=== PATIENT | female | born 1990 | race African-American/Black ===

== ENCOUNTER 2017-07-03 22:23 | Inpatient (IN) ==
[2017-07-03 22:31] VITALS: BMI 29.9
[2017-07-03 23:02] LABS: BILIRUBIN,URINE NEGATIVE (NEGATIVE); BLOOD/HEMOGLOBIN,URINE NEGATIVE (NEGATIVE); GLUCOSE, URINE NEGATIVE (NEGATIVE); KETONES,URINE NEGATIVE (NEGATIVE); LEUKOCYTE ESTERASE ,URINE 1+ (NEGATIVE); NITRITES,URINE POSITIVE (NEGATIVE); PROTEIN,URINE NEGATIVE (NEGATIVE); UROBILINOGEN,URINE NORMAL (NORMAL)
[2017-07-03 23:13] LABS: APPEARANCE,URINE SLIGHTLY HAZY (CLEAR); BACTERIA,URINE 2+ /HPF (NEGATIVE); COLOR,URINE YELLOW (YELLOW); RBC,URINE 0-2 /HPF (NONE SEEN); SQUAMOUS EPITHELIAL CELL,UR MANY /HPF (NEGATIVE)
[2017-07-03 23:15] LABS: AMNISURE ROM TEST NO MEMBRANES RUPTURE (NO RUPTURE)
[2017-07-03] MEDS ORDERED: PITOCIN ONE ×2 (23:43→23:44)
[2017-07-03] MEDS ORDERED: NS 100 ML IV 100 ML IV ONE (23:43)
[2017-07-03] MEDS ORDERED: AMPICILLIN VIAL 2 GRAM ONE (23:43)
[2017-07-03] MEDS ORDERED: D5LR 1L W PITOCIN 10 UNITS/L 10 UNITS/1,000 ML BAG IV ONE (23:43)
[2017-07-03] MEDS ORDERED: D5 1/2 NS 1000 ML 1,000 ML IV ONE (23:43)
[2017-07-03] MEDS ORDERED: D5 LR 1000 ML 1,000 ML IV ONE (23:44)
[2017-07-04] MEDS ORDERED: D5 1/2 NS 1000 ML 1,000 ML IV SCH
[2017-07-04] MEDS ORDERED: AMPICILLIN VIAL 2 GRAM 2 G in NS 100 ML IV + SPIKE MINIBAG* 100 ML IV SCH ×2
[2017-07-04] MEDS ORDERED: PITOCIN IVP ONE
[2017-07-04 00:31] LABS: BASOPHILS # (AUTO) 0.1 X10^3/uL (0.0-0.1); BASOPHILS % (AUTO) 0.5 % (0.2-1.0); EOSINOPHILS # (AUTO) 0.1 x10^3/uL (0.0-0.2); EOSINOPHILS % (AUTO) 0.5 % (0.9-2.9); HEMATOCRIT 27.4 % (36.0-47.0); HEMOGLOBIN 9.1 g/dL (12.0-16.0); LYMPHOCYTES # (AUTO) 2.2 X10^3/uL (1.3-2.9); LYMPHOCYTES % (AUTO) 18.8 % (21.0-51.0); MEAN CORPUSCULAR HEMOGLOBIN 28.7 pg (27.0-34.0); MEAN CORPUSCULAR HGB CONC 33.3 g/dL (33.0-35.0); MEAN CORPUSCULAR VOLUME 86.3 fL (80.0-100.0); MEAN PLATELET VOLUME 9.3 fL (7.4-11.0); MONOCYTES # (AUTO) 0.6 x10^3/uL (0.3-0.8); MONOCYTES % (AUTO) 5.2 % (0.0-13.0); NEUTROPHILS # (AUTO) 8.7 x10^3/uL (2.2-4.8); PLATELET COUNT 306 X10^3/uL (150.0-450.0); RED BLOOD COUNT 3.18 X10^6/uL (3.5-5.4); RED CELL DISTRIBUTION WIDTH 15.7 % (11.6-16.5); WHITE BLOOD COUNT 11.7 X10^3/uL (3.6-10.0)
[2017-07-04] MEDS ORDERED: MOTRIN TAB 800 MG PO PRN (00:43)
[2017-07-04] MEDS ORDERED: PHENERGAN INJ 25 MG IV PRN ×2 (00:43→01:51)
[2017-07-04] MEDS ORDERED: D5 1/2 NS 1000 ML 1,000 ML with PITOCIN 20 UNITS IV SCH ×2 (01:00)
[2017-07-04 01:17] LABS: BLOOD UREA NITROGEN 10 mg/dL (7-18); CALCIUM 8.1 mg/dL (8.5-10.1); CARBON DIOXIDE 22.4 mmol/L (21-32); CHLORIDE 102 mmol/L (98-107); CREATININE 0.71 mg/dL (0.55-1.02); SODIUM 136 mmol/L (136-145); eGFR NON BLACK RACES > 60 (>60)
[2017-07-04] MEDS ORDERED: AMBIEN PO PRN (01:51)
[2017-07-04] MEDS ORDERED: MILK OF MAGNESIA PO PRN (01:51)
[2017-07-04] MEDS ORDERED: ADACEL or BOOSTRIX TDaP VACCINE IM ONE (01:51)
[2017-07-04] MEDS ORDERED: DERMOPLAST SPRAY TOP PRN (01:51)
[2017-07-04] MEDS: MOTRIN TAB 800 MG PO PRN ×2 (02:00→17:12)
[2017-07-04 05:19] LABS: HEMATOCRIT 27.6 % (36.0-47.0); HEMOGLOBIN 9.4 g/dL (12.0-16.0)
[2017-07-04] MEDS: PRENATAL PLUS PO SCH (09:14)
[2017-07-04] MEDS: ZANTAC PO SCH ×2 (09:14→20:44)
[2017-07-04] MEDS: BACTRIM DS TAB PO SCH ×2 (09:14→20:43)
[2017-07-04] MEDS: D5 1/2 NS 1000 ML 1,000 ML with PITOCIN 20 UNITS IV SCH ×4 (10:11→17:22)
[2017-07-05] MEDS: D5 1/2 NS 1000 ML 1,000 ML with PITOCIN 20 UNITS IV SCH ×2 (01:49)
[2017-07-05 07:44] VITALS: BP 97/55
[2017-07-05] MEDS ORDERED: DEPO-PROVERA CONTRACEPTIVE INJ IM ONE (08:05)
[2017-07-05] MEDS: BACTRIM DS TAB PO SCH (08:56)
[2017-07-05] MEDS: ZANTAC PO SCH (09:01)
[2017-07-05] MEDS: PRENATAL PLUS PO SCH (09:01)
== END 2017-07-05 11:00 | disposition home or self-care (01) | DRG 775 ==
LOC: ER 22:35 → LD 23:41 → MED/SURG 07-04 00:44
PROVIDERS: ADMIT Specialist; ATTEND Specialist
DX: Z37.0 Single live birth; N39.0 Urinary tract infection, site not specified; Z3A.39 39 weeks gestation of pregnancy; F12.90 Cannabis use, unspecified, uncomplicated; O99.013 Anemia complicating pregnancy, third trimester; D50.8 Other iron deficiency anemias
CPT/HCPCS: 36415; 59409; 80048; 81001; 84112; 85014; 85018; 85025; 86592; 86850; 86880; 86900; 86901; 99282; 99284; A4216; A4222; S0197; J0290; J1050; J2590; J7050; J7121; S5010

== ENCOUNTER 2019-12-15 09:09 | Inpatient (IN) ==
[2019-12-15] MEDS ORDERED: NS 500 ML IV 1,000 ML IV ONE (09:25)
[2019-12-15] MEDS ORDERED: NS 500 ML IV 500 ML IV ONE (09:32)
--- NOTE | 2019-12-15 09:38 | DR.POSSPRE ---
HPI Time Seen Time Seen by Provider: 12/15/19 09:25 Primary Care Physician Primary Care Physician: NFD Complaints Chief Complaint Doctors Comments: Patient with no care and believes she saw Fetus pass with blood and clots. Still having blood clots and has a Hx of anemia. Chief Complaint:: PT STATES THAT SHE WAS ABOUT 3 MONTHS AND HAD MISCARRIAGE ON SUNDAY AND WAS SEEN IN [place] [facility]. PT STATES THAT SHE IS STILL PASSING LARGE CLOTS AND TODAY HAS FELT VERY DIZZY AND LIKE SHE WOULD PASS OUT. Reviewed Nurses Notes Reviewed: Yes Source History Provided: Patient Mode of Arrival Mode of Arrival: Ambulatory Timing Onset of Chief Complaint: 12/15/19 Context Control: None History of ectopic : No History of: None Associated Signs and Symptoms Associated Signs and Symptoms: Vaginal Bleeding Severity If Nausea/Vomiting:: Mild Quality If Vaginal Bleeding:: Dark and Clotted If abdominal pain:: Cramping PMH PMH Past Medical History: No Past Surgical History: No Family History History of Family Medical Conditions: No Family Medical History: Diabetes Mellitus, Coronary Artery Disease and Hypertension Social History Does patient currently use any type of tobacco product: Yes Have you used tobacco products in the last 12 months: Yes Type of Tobacco Use: Cigarettes Does any household member use tobacco: No Alcohol Use: Occasionally Do you use any recreational Drugs:: No Lives With: Family Lives Where: Home Infectious screening In the last 2 months have you had wt loss of >10#?: NO Have you had fever, night sweats or hemotysis?: No Have you traveled outside the country in the last 6 months?: No Isolation: Standard ROS Review of Systems Constitutional: No Symptoms Reported Eyes: No Symptoms Reported ENTM: No Symptoms Reported Respiratoy: No Symptoms Reported Cardiovascular: Syncope (near syncope) Gastrointestinal/Abdominal: Nausea Genitourinary: No Symptoms Reported Neurological: No Symptoms Reported Musculoskeletal: No Symptoms Reported Integumentary: No Symptoms Reported Hematologic/Lymphatic: Anemia and Blood Clots Endocrine: No Symptoms Reported Psychiatric: No Symptoms Reported All Other Systems: Reviewed and Negative PE Vital Signs Vitals: Temperature 98.1 F Pulse Rate 101 Respiratory Rate 33 Blood Pressure [Right Arm] 97/55 Blood Pressure 79/41 O2 Sat by Pulse Oximetry 100 General Limitations: No Limitations General Appearance: Alert and In No Apparent Distress Head Head Exam: Normal Inspection, Atraumatic and Normocephalic Eyes Eye exam: Normal Appearance and EOMI ENT ENT Exam: Normal Exam and Normal Oropharynx Neck Neck Exam: Normal Inspection, Full ROM and Trachea Midline Chest Chest Inspection: Normal Inspection Respiratory Respiratory Exam: Normal Lung Sounds Bilat Respiratory Exam: Bilateral: Clear to Auscultation Cardiovascular Cardiovascular Exam: Tachycardia Abdominal Exam Abdominal Exam: Normal Inspection, Normal Bowel Sounds and Soft; negative Distention, Tenderness and Guarding Abdominal Tenderness: Suprapubic Rectal Rectal Exam: Deferred Genitourinary Exam: OB: Deferred : OB External Exam: Deferred Extremities Extremities Exam: Normal Inspection and Full ROM Back Back Exam: Normal Inspection and Full ROM Neurologic Neurological Exam: Alert, Oriented X3, CN II-XII Intact and Normal Gait Psychiatric Psychiatric Exam: Normal Affect Skin Skin Exam: Normal Color COURSE Consultation Called: :17 Call Returned: : Consultation Comments: case discussed with DR. Carbone give IV Venafer and po methergine. If bleeding continues have nurses call Dr. Carbone ROR Labs Reviewed Result Diagrams: 12/15/19 09:30 12/15/19 09:30 Laboratory: WBC 10.0 X10^3/uL (3.6-10.0) 12/15/19 09:30 RBC 2.53 X10^6/uL (3.5-5.4) L 12/15/19 09:30 Hgb 7.5 g/dL (12.0-16.0) L 12/15/19 09:30 Hct 22.0 % (36.0-47.0) L 12/15/19 09:30 MCV 86.8 fL (80.0-100.0) 12/15/19 09:30 MCH 29.8 pg (27.0-34.0) 12/15/19 09:30 MCHC 34.3 g/dL (33.0-35.0) 12/15/19 09:30 RDW 14.4 % (11.6-16.5) 12/15/19 09:30 Plt Count 217 X10^3/uL (150.0-450.0) 12/15/19 09:30 Plt Count Comment Adequate (ADEQUATE) 12/15/19 09:30 MPV 7.9 fL (7.4-11.0) 12/15/19 09:30 Neut % (Auto) 92.9 % (42.0-75.0) H 12/15/19 09:30 Lymph % (Auto) 4.6 % (21.0-51.0) L 12/15/19 09:30 Anderson % (Auto) 2.2 % (0.0-13.0) 12/15/19 09:30 Eos % (Auto) 0.2 % (0.9-2.9) L 12/15/19 09:30 Baso % (Auto) 0.1 % (0.2-1.0) L 12/15/19 09:30 Neut # (Auto) 9.3 x10^3/uL (2.2-4.8) H 12/15/19 09:30 Lymph # (Auto) 0.5 X10^3/uL (1.3-2.9) L 12/15/19 09:30 Anderson # (Auto) 0.2 x10^3/uL (0.3-0.8) L 12/15/19 09:30 Eos # (Auto) 0.0 x10^3/uL (0.0-0.2) 12/15/19 09:30 Baso # (Auto) 0.0 X10^3/uL (0.0-0.1) 12/15/19 09:30 Absolute Nucleated RBC 0.1 /100WBC 12/15/19 09:30 Total Counted 100 12/15/19 09:30 Neutrophils % (Manual) 77 % (39-76) H 12/15/19 09:30 Band Neutrophils % 12 % (0-10) H 12/15/19 09:30 Lymphocytes % (Manual) 8 % (13-43) L 12/15/19 09:30 Monocytes % (Manual) 2 % (4-9) L 12/15/19 09:30 Eosinophils % (Manual) 1 % (0-6) 12/15/19 09:30 Plt Morphology Comment Normal (NORMAL) 12/15/19 09:30 RBC Morphology Normal (NORMAL) 12/15/19 09:30 Sodium 135 mmol/L (136-145) L 12/15/19 09:30 Corrected Sodium TNP 12/15/19 09:30 Potassium 3.4 mmol/L (3.5-5.1) L 12/15/19 09:30 Chloride 103 mmol/L (98-107) 12/15/19 09:30 Carbon Dioxide 21.1 mmol/L (21-32) 12/15/19 09:30 BUN 8 mg/dL (7-18) 12/15/19 09:30 Creatinine 1.21 mg/dL (0.55-1.02) H 12/15/19 09:30 Est GFR (MDRD) Af Amer > 60 (>60) 12/15/19 09:30 Est GFR (MDRD) Non-Af 57 (>60) L 12/15/19 09:30 Glucose 97 mg/dL (65-99) 12/15/19 09:30 Calcium 8.9 mg/dL (8.5-10.1) 12/15/19 09:30 Corrected Calcium 10.5 mg/dL (8.5-10.1) H 12/15/19 09:30 Iron 6 ug/dL (50-175) L 12/15/19:30 Transferrin 220 mg/dL (202-364) 12/15/19:30 Ferritin 117 ng/mL (8-252) 12/15/19 09:30 Total Bilirubin 0.40 mg/dL (0.2-1.0) 12/15/19 09:30 AST 23 Units/L (15-37) 12/15/19:30 ALT 16 Units/L (12-78) 12/15/19 09:30 Alkaline Phosphatase 165 Units/L (46-116) H 12/15/19 09:30 Total Protein 5.9 g/dL (6.4-8.2) L 12/15/19 09:30 Albumin 2.0 g/dL (3.4-5.0) L 12/15/19 09:30 Globulin 3.9 g/dL (2.5-4.5) 12/15/19 09:30 Albumin/Globulin Ratio 0.5 Ratio (1.1-2.1) L 12/15/19 09:30 Vitamin B12 286 pg/mL (193-986) 12/15/19:30 Folate 13.7 ng/mL (>8.6) 12/15/19 09:30 HCG, Quant 19199 mIU/mL (0-6) H 12/15/19:30 Blood Type O POSITIVE 12/15/19 09:36 XRAY XRAY Interpreted by: Radiologist X-ray Results: OB US: Enlarged uterus consistent with a history spontaneous of a three-month fetus as given by the history No for intrauterine gestation or extra uterine gestation Echogenic endometrium with some mild acoustic shadowing suggestive of the possibility of endometrial air or gas. This could be related to the recent spontaneous or endometritis No definite adnexal abnormality Incidental note made of draining pelvic veins Opioid Opioid Risk Tool Total: 0 Total Score Risk Category: Low Risk Copyright: Adam BARFIELD predicting aberrant behaviors
[2019-12-15 09:44] LABS: BASOPHILS % (AUTO) 0.1 % (0.2-1.0); EOSINOPHILS % (AUTO) 0.2 % (0.9-2.9); HEMOGLOBIN 7.5 g/dL (12.0-16.0); LYMPHOCYTES # (AUTO) 0.5 X10^3/uL (1.3-2.9); LYMPHOCYTES % (AUTO) 4.6 % (21.0-51.0); MEAN CORPUSCULAR HEMOGLOBIN 29.8 pg (27.0-34.0); MEAN CORPUSCULAR HGB CONC 34.3 g/dL (33.0-35.0); MEAN CORPUSCULAR VOLUME 86.8 fL (80.0-100.0); MEAN PLATELET VOLUME 7.9 fL (7.4-11.0); MONOCYTES # (AUTO) 0.2 x10^3/uL (0.3-0.8); MONOCYTES % (AUTO) 2.2 % (0.0-13.0); NEUTROPHILS # (AUTO) 9.3 x10^3/uL (2.2-4.8); NEUTROPHILS % (AUTO) 92.9 % (42.0-75.0); PLATELET COUNT 217 X10^3/uL (150.0-450.0); RED BLOOD COUNT 2.53 X10^6/uL (3.5-5.4); RED CELL DISTRIBUTION WIDTH 14.4 % (11.6-16.5)
[2019-12-15 09:59] LABS: BAND NEUTROPHILS % 12 % (0-10); PLATELET MORPHOLOGY COMMENT NORMAL (NORMAL)
[2019-12-15 10:01] LABS: ALANINE AMINOTRANSFERASE 16 Units/L (12-78); ALKALINE PHOSPHATASE 165 Units/L (46-116); ASPARTATE AMINO TRANSFERASE 23 Units/L (15-37); BLOOD UREA NITROGEN 8 mg/dL (7-18); CALCIUM 8.9 mg/dL (8.5-10.1); CARBON DIOXIDE 21.1 mmol/L (21-32); CHLORIDE 103 mmol/L (98-107); COR CA(FOR HYPOALB) 10.5 mg/dL (8.5-10.1); CREATININE 1.21 mg/dL (0.55-1.02); SODIUM 135 mmol/L (136-145); TOTAL PROTEIN 5.9 g/dL (6.4-8.2); eGFR NON BLACK RACES 57 (>60)
[2019-12-15] MEDS ORDERED: NS 1000 ML 1,000 ML ONE ×3 (10:04→11:10)
[2019-12-15] MEDS ORDERED: NS 1000 ML 1,000 ML IV ONE ×4 (10:07→11:09)
[2019-12-15 11:10] LABS: HCG,QUANTITATIVE 13820 mIU/mL (0-6)
[2019-12-15] MEDS ORDERED: NS 100 ML IV 100 ML with VENOFER 400 MG IV NR ×2 (11:26)
--- NOTE | 2019-12-15 11:42 | US ---
HISTORYIntrauterine demiseSTUDYOb sonogramTechnique: Multiple grayscale sonographic images were obtained transabdominally. Transvaginal examination was not performed due to the patient's hypotensionCOMPARISONNoneFINDINGSUterus measured 16.9 x 6.9 by 8 cm. There is no intrauterine gestation present. The endometrium is quite echogenic with a question of some dirty shadowing. This suggest the possibility of endometrial air or gas. The right ovary measured 2.6 x 1.9 by 1.7 cm and appear normal and demonstrated normal blood flow. Left ovary measures 3.1 x 1.2 x 1.7 cm and appear normal and demonstrated normal blood flow. No significant free fluid is identified in the cul de sac. Extensive network of dilated draining pelvic veins noted. There is no evidence for adnexal mass. No extra uterine gestation is identified.IMPRESSIONEnlarged uterus consistent with a history spontaneous of a three-month fetus as given by the historyNo for intrauterine gestation or extra uterine gestationEchogenic endometrium with some mild acoustic shadowing suggestive of the possibility of endometrial air or gas. This could be related to the recent spontaneous or endometritisNo definite adnexal abnormalityIncidental note made of draining pelvic veinsElectronically signed by: TENNILLE LOPEZ (Dec 15, 2019 11:40:30)
[2019-12-15 13:32] LABS: BASOPHILS % (AUTO) 0.1 % (0.2-1.0); LYMPHOCYTES # (AUTO) 0.4 X10^3/uL (1.3-2.9); LYMPHOCYTES % (AUTO) 3.1 % (21.0-51.0); MEAN CORPUSCULAR HEMOGLOBIN 29.2 pg (27.0-34.0); MEAN CORPUSCULAR HGB CONC 33.6 g/dL (33.0-35.0); MEAN CORPUSCULAR VOLUME 86.9 fL (80.0-100.0); MEAN PLATELET VOLUME 8.5 fL (7.4-11.0); MONOCYTES # (AUTO) 0.7 x10^3/uL (0.3-0.8); MONOCYTES % (AUTO) 5.2 % (0.0-13.0); NEUTROPHILS # (AUTO) 12.6 x10^3/uL (2.2-4.8); NEUTROPHILS % (AUTO) 91.6 % (42.0-75.0); PLATELET COUNT 174 X10^3/uL (150.0-450.0); RED BLOOD COUNT 2.08 X10^6/uL (3.5-5.4); RED CELL DISTRIBUTION WIDTH 14.3 % (11.6-16.5); WHITE BLOOD COUNT 13.7 X10^3/uL (3.6-10.0)
[2019-12-15] MEDS ORDERED: DOPAMINE IV PREMIX 400 MG/250 ML 400 MG/250 ML BAG IV ONE (13:36)
[2019-12-15] MEDS: DOPAMINE IV PREMIX 400 MG/250 ML 400 MG/250 ML BAG IV PRN (13:42)
[2019-12-15 13:46] LABS: HEMOGLOBIN 6.1 g/dL (12.0-16.0)
[2019-12-15 13:47] LABS: HEMATOCRIT 18.1 % (36.0-47.0)
[2019-12-15 13:53] LABS: BAND NEUTROPHILS % 13 % (0-10)
[2019-12-15 13:54] LABS: PLATELET MORPHOLOGY COMMENT NORMAL (NORMAL)
[2019-12-15 14:29] VITALS: BMI 25.0
[2019-12-15] MEDS: METHERGINE PO SCH ×3 (14:51→22:11)
[2019-12-15] MEDS: NS 1000 ML 1,000 ML IV SCH ×2 (14:51→20:00)
[2019-12-15] MEDS ORDERED: BETADINE SOLN ONE (17:46)
[2019-12-15] MEDS ORDERED: LR 1000 ML IV 1,000 ML IV ONE (18:12)
[2019-12-15] MEDS ORDERED: ANCEF 1 GRAM IV PREMIX* 1 G/50 ML BAG IV ONE (18:16)
[2019-12-15] MEDS ORDERED: DROPERIDOL ONE (18:21)
[2019-12-15] MEDS ORDERED: ZOFRAN INJ 4 MG VIAL ONE (18:21)
[2019-12-15] MEDS ORDERED: DECADRON INJ ONE (18:21)
[2019-12-15] MEDS ORDERED: DIPRIVAN VIAL ONE (18:21)
[2019-12-15] MEDS ORDERED: VERSED ONE (18:21)
[2019-12-15] MEDS ORDERED: XYLOCAINE 2 % (PLAIN) ONE (18:21)
[2019-12-15] MEDS ORDERED: NEO-SYNEPHRINE INJ ONE (18:21)
[2019-12-15] MEDS ORDERED: KETALAR ONE (18:21)
[2019-12-15] MEDS ORDERED: HEMABATE IM ONE (18:42)
[2019-12-15] MEDS ORDERED: ROCEPHIN VIAL 2 GRAMS 2 G in NS 100 ML IV + SPIKE MINIBAG* 100 ML IV STA (19:05)
[2019-12-15] MEDS ORDERED: ROCEPHIN IV ONE (19:08)
[2019-12-15] MEDS ORDERED: PHENERGAN INJ 25 MG IM PRN (19:26)
[2019-12-15] MEDS ORDERED: DILAUDID INJ IVP PRN (19:26)
[2019-12-15] MEDS ORDERED: BENADRYL INJ 50 MG VIAL IVP PRN (19:26)
[2019-12-15] MEDS ORDERED: ZOFRAN INJ 4 MG VIAL IVP PRN (19:26)
[2019-12-15] MEDS ORDERED: REGLAN INJ 10 MG VIAL IVP PRN (19:26)
[2019-12-16] MEDS: DOPAMINE IV PREMIX 400 MG/250 ML 400 MG/250 ML BAG IV PRN ×2 (01:03→12:19)
[2019-12-16] MEDS: NS 1000 ML 1,000 ML IV SCH ×5 (05:08→21:55)
[2019-12-16 05:47] LABS: ALANINE AMINOTRANSFERASE 10 Units/L (12-78); ALBUMIN 1.3 g/dL (3.4-5.0); ALKALINE PHOSPHATASE 60 Units/L (46-116); ASPARTATE AMINO TRANSFERASE 13 Units/L (15-37); BLOOD UREA NITROGEN 5 mg/dL (7-18); CALCIUM 7.3 mg/dL (8.5-10.1); CARBON DIOXIDE 20.2 mmol/L (21-32); CHLORIDE 111 mmol/L (98-107); COR CA(FOR HYPOALB) 9.5 mg/dL (8.5-10.1); COR NA(FOR HYPERGLY) 141 mmol/L (136-145); CREATININE 0.72 mg/dL (0.55-1.02); IRON 155 ug/dL (50-175); MAGNESIUM 2.1 mg/dL (1.7-2.9); SODIUM 140 mmol/L (136-145); TOTAL PROTEIN 4.3 g/dL (6.4-8.2); eGFR NON BLACK RACES > 60 (>60)
[2019-12-16 06:23] LABS: BASOPHILS % (AUTO) 0.3 % (0.2-1.0); LYMPHOCYTES # (AUTO) 0.5 X10^3/uL (1.3-2.9); LYMPHOCYTES % (AUTO) 3.9 % (21.0-51.0); MEAN CORPUSCULAR HEMOGLOBIN 29.5 pg (27.0-34.0); MEAN CORPUSCULAR VOLUME 86.9 fL (80.0-100.0); MEAN PLATELET VOLUME 9.1 fL (7.4-11.0); MONOCYTES # (AUTO) 0.4 x10^3/uL (0.3-0.8); MONOCYTES % (AUTO) 2.6 % (0.0-13.0); NEUTROPHILS # (AUTO) 13.2 x10^3/uL (2.2-4.8); NEUTROPHILS % (AUTO) 93.2 % (42.0-75.0); PLATELET COUNT 164 X10^3/uL (150.0-450.0); RED BLOOD COUNT 1.31 X10^6/uL (3.5-5.4); RED CELL DISTRIBUTION WIDTH 14.5 % (11.6-16.5); WHITE BLOOD COUNT 14.2 X10^3/uL (3.6-10.0)
[2019-12-16 06:40] LABS: HEMATOCRIT 11.3 % (36.0-47.0); HEMOGLOBIN 3.9 g/dL (12.0-16.0)
[2019-12-16 06:41] LABS: BAND NEUTROPHILS % 10 % (0-10); PLATELET MORPHOLOGY COMMENT NORMAL (NORMAL)
[2019-12-16] MEDS ORDERED: NS 500 ML IV 500 ML IV ONE ×2 (08:41→19:54)
[2019-12-16] MEDS ORDERED: AVELOX IV 400 MG/250 ML BAG 400 MG/250 ML PIGGYBACK IV SCH ×2 (09:00→21:00)
[2019-12-16] MEDS: METHERGINE PO SCH ×4 (10:03→21:55)
[2019-12-16] MEDS ORDERED: LEVSIN/MAALOX/LIDOC VISC ONE (17:35)
[2019-12-16] MEDS ORDERED: LEVSIN/MAALOX/LIDOC VISC PO PRN (18:35)
[2019-12-17] MEDS ORDERED: NS 500 ML IV 500 ML IV ONE (00:10)
[2019-12-17] MEDS: NS 1000 ML 1,000 ML IV SCH ×3 (02:07→13:27)
[2019-12-17 05:54] LABS: ALANINE AMINOTRANSFERASE 25 Units/L (12-78); ALBUMIN 1.3 g/dL (3.4-5.0); ALKALINE PHOSPHATASE 87 Units/L (46-116); ASPARTATE AMINO TRANSFERASE 33 Units/L (15-37); BLOOD UREA NITROGEN 4 mg/dL (7-18); CALCIUM 7.7 mg/dL (8.5-10.1); CARBON DIOXIDE 22.8 mmol/L (21-32); CHLORIDE 111 mmol/L (98-107); COR CA(FOR HYPOALB) 9.9 mg/dL (8.5-10.1); CREATININE 0.67 mg/dL (0.55-1.02); SODIUM 141 mmol/L (136-145); TOTAL PROTEIN 4.3 g/dL (6.4-8.2); eGFR NON BLACK RACES > 60 (>60)
[2019-12-17 06:00] LABS: BASOPHILS % (AUTO) 0.3 % (0.2-1.0); EOSINOPHILS # (AUTO) 0.1 x10^3/uL (0.0-0.2); EOSINOPHILS % (AUTO) 1.1 % (0.9-2.9); HEMATOCRIT 22.6 % (36.0-47.0); LYMPHOCYTES # (AUTO) 1.2 X10^3/uL (1.3-2.9); LYMPHOCYTES % (AUTO) 9.4 % (21.0-51.0); MEAN CORPUSCULAR HGB CONC 34.7 g/dL (33.0-35.0); MEAN CORPUSCULAR VOLUME 86.6 fL (80.0-100.0); MEAN PLATELET VOLUME 9.4 fL (7.4-11.0); MONOCYTES # (AUTO) 0.8 x10^3/uL (0.3-0.8); NEUTROPHILS # (AUTO) 10.6 x10^3/uL (2.2-4.8); NEUTROPHILS % (AUTO) 83.2 % (42.0-75.0); PLATELET COUNT 188 X10^3/uL (150.0-450.0); RED BLOOD COUNT 2.61 X10^6/uL (3.5-5.4); RED CELL DISTRIBUTION WIDTH 14.1 % (11.6-16.5); WHITE BLOOD COUNT 12.7 X10^3/uL (3.6-10.0)
[2019-12-17 06:14] LABS: HEMOGLOBIN 7.8 g/dL (12.0-16.0)
[2019-12-17 06:31] LABS: BAND NEUTROPHILS % 3 % (0-10)
[2019-12-17 06:33] LABS: METAMYELOCYTES % 2
[2019-12-17 06:34] LABS: HYPOCHROMASIA SLIGHT; PLATELET MORPHOLOGY COMMENT NORMAL (NORMAL)
[2019-12-17] MEDS ORDERED: NS 100 ML IV 100 ML with VENOFER 400 MG IV NR ×2 (08:57)
[2019-12-17 14:09] VITALS: BP 103/74
== END 2019-12-17 14:20 | disposition home or self-care (01) | DRG 779 ==
LOC: ICU 09:12 → ER 09:12 → ICU 13:30
PROVIDERS: ADMIT Obstetrics & Gynecology Obstetrics; ATTEND Obstetrics & Gynecology Obstetrics
DX: O03.1 Delayed or excessive hemorrhage following incomplete spontaneous abortion

== ENCOUNTER 2021-05-13 06:07 | Inpatient (IN) ==
[2021-05-13] MEDS ORDERED: D5 1/2 NS 1,000 ML 1,000 ML IV ONE (06:13)
[2021-05-13] MEDS ORDERED: AMPICILLIN VIAL 2 GRAM ONE (06:14)
[2021-05-13] MEDS ORDERED: NS 100 ML IV 100 ML ONE (06:16)
[2021-05-13] MEDS ORDERED: D5 1/2 NS 1,000 ML 1,000 ML IV SCH ×3 (06:18→07:00)
[2021-05-13] MEDS ORDERED: PITOCIN IVP ONE (06:18)
[2021-05-13 06:24] VITALS: BMI 34.7
[2021-05-13 06:31] LABS: BASOPHILS # (AUTO) 0.1 X10^3/uL (0.0-0.1); BASOPHILS % (AUTO) 0.9 % (0.2-1.0); EOSINOPHILS # (AUTO) 0.1 x10^3/uL (0.0-0.2); EOSINOPHILS % (AUTO) 0.7 % (0.9-2.9); HEMATOCRIT 28.5 % (36.0-47.0); HEMOGLOBIN 9.6 g/dL (12.0-16.0); LYMPHOCYTES # (AUTO) 1.6 X10^3/uL (1.3-2.9); LYMPHOCYTES % (AUTO) 22.4 % (21.0-51.0); MEAN CORPUSCULAR HEMOGLOBIN 28.4 pg (27.0-34.0); MEAN CORPUSCULAR HGB CONC 33.7 g/dL (33.0-35.0); MEAN CORPUSCULAR VOLUME 84.4 fL (80.0-100.0); MEAN PLATELET VOLUME 9.6 fL (7.4-11.0); MONOCYTES # (AUTO) 0.4 x10^3/uL (0.3-0.8); MONOCYTES % (AUTO) 5.7 % (0.0-13.0); NEUTROPHILS # (AUTO) 5.1 x10^3/uL (2.2-4.8); NEUTROPHILS % (AUTO) 70.3 % (42.0-75.0); RED BLOOD COUNT 3.37 X10^6/uL (3.5-5.4); WHITE BLOOD COUNT 7.3 X10^3/uL (3.6-10.0)
[2021-05-13 06:34] LABS: BILIRUBIN,URINE NEGATIVE (NEGATIVE); BLOOD/HEMOGLOBIN,URINE 4+ (NEGATIVE); GLUCOSE, URINE NEGATIVE (NEGATIVE); KETONES,URINE NEGATIVE (NEGATIVE); LEUKOCYTE ESTERASE ,URINE 3+ (NEGATIVE); NITRITES,URINE NEGATIVE (NEGATIVE); PROTEIN,URINE 1+ (NEGATIVE); UROBILINOGEN,URINE 1+ (NORMAL)
[2021-05-13 06:39] LABS: AMNISURE ROM TEST THERE IS A RUPTURE (NO RUPTURE)
[2021-05-13 06:42] LABS: ALANINE AMINOTRANSFERASE 11 Units/L (12-78); ALBUMIN 2.3 g/dL (3.4-5.0); ALKALINE PHOSPHATASE 127 Units/L (46-116); ASPARTATE AMINO TRANSFERASE 17 Units/L (15-37); BLOOD UREA NITROGEN 3 mg/dL (7-18); CALCIUM 8.5 mg/dL (8.5-10.1); CARBON DIOXIDE 21.6 mmol/L (21-32); CHLORIDE 104 mmol/L (98-107); COR CA(FOR HYPOALB) 9.9 mg/dL (8.5-10.1); CREATININE 0.76 mg/dL (0.55-1.02); SODIUM 136 mmol/L (136-145); TOTAL PROTEIN 6.8 g/dL (6.4-8.2); eGFR NON BLACK RACES > 60 (>60)
[2021-05-13 06:46] LABS: APPEARANCE,URINE HAZY (CLEAR); COLOR,URINE YELLOW (YELLOW)
[2021-05-13 06:47] LABS: BACTERIA,URINE TRACE /HPF (NEGATIVE); SQUAMOUS EPITHELIAL CELL,UR NUMEROUS /HPF (NEGATIVE)
[2021-05-13] MEDS ORDERED: AMPICILLIN VIAL 2 GRAM 2 G in NS 100 ML IV 100 ML IV SCH (07:00)
[2021-05-13] MEDS ORDERED: PHENERGAN INJ 25 MG IM PRN (07:27)
[2021-05-13] MEDS ORDERED: MOTRIN TAB 800 MG PO PRN (07:27)
--- NOTE | 2021-05-13 07:33 | DR.OB ---
OB Quick Note - Assessment/Plan Assessment/Plan: Delivery Note [employer] 05/13/21 at 7:14am Patient complete and pushing. Head delivered over intact perineum. Nose and mouth bulb suctioned. Nuchal cord x 1 reduced. Body delivered over intact perineum. Cord clamped x 2 and cut. Infant handed to attendant. Cord sent for gases. Placenta delivered spontaneously / intact / 3 vessel cord. No CVX / vaginal / perineal tears noted. Viable male infant, VTX/OA, wt=6'7" and 9/9, stable to NBN. Mother stable to RR. WFA=[id number].
[2021-05-13] MEDS: D5 1/2 NS 1,000 ML 1,000 ML with PITOCIN 20 UNITS IV SCH ×4 (08:31→16:01)
[2021-05-13] MEDS ORDERED: DERMOPLAST PAIN RELIEF SPRAY TOP PRN (08:54)
[2021-05-13] MEDS ORDERED: MILK OF MAGNESIA PO PRN (08:54)
[2021-05-13] MEDS ORDERED: AMBIEN PO PRN (08:54)
[2021-05-13] MEDS ORDERED: ADACEL or BOOSTRIX TDaP VACCINE IM ONE (08:54)
[2021-05-13 09:18] LABS: BILIRUBIN,URINE NEGATIVE (NEGATIVE); BLOOD/HEMOGLOBIN,URINE 2+ (NEGATIVE); GLUCOSE, URINE 2+ (NEGATIVE); KETONES,URINE NEGATIVE (NEGATIVE); LEUKOCYTE ESTERASE ,URINE 2+ (NEGATIVE); NITRITES,URINE NEGATIVE (NEGATIVE); PROTEIN,URINE NEGATIVE (NEGATIVE); UROBILINOGEN,URINE NORMAL (NORMAL)
[2021-05-13] MEDS ORDERED: D5 1/2 NS 1,000 mL + PITOCIN 20 UNITS/L IV 20 UNITS/1,000 ML BAG IV ONE (09:34)
[2021-05-13] MEDS ORDERED: D5 LR + PITOCIN 10 UNITS/L 10 UNITS/1,000 ML BAG IV ONE (09:34)
[2021-05-13] MEDS ORDERED: BETADINE SOLN ONE (09:34)
[2021-05-13] MEDS ORDERED: PITOCIN ONE (09:34)
[2021-05-13 09:36] LABS: APPEARANCE,URINE CLEAR (CLEAR); BACTERIA,URINE NEGATIVE /HPF (NEGATIVE); COLOR,URINE YELLOW (YELLOW); SQUAMOUS EPITHELIAL CELL,UR RARE /HPF (NEGATIVE)
[2021-05-13] MEDS: PRENATAL PLUS PO SCH (13:00)
[2021-05-14] MEDS: D5 1/2 NS 1,000 ML 1,000 ML with PITOCIN 20 UNITS IV SCH ×2 (03:21)
[2021-05-14 06:05] LABS: HEMATOCRIT 26.2 % (36.0-47.0); HEMOGLOBIN 8.9 g/dL (12.0-16.0)
[2021-05-14] MEDS ORDERED: DEPO-PROVERA CONTRACEPTIVE INJ IM ONE (07:04)
[2021-05-14] MEDS: PRENATAL PLUS PO SCH (09:09)
[2021-05-14 10:23] VITALS: BP 114/58
== END 2021-05-14 13:05 | disposition home or self-care (01) | DRG 807 ==
LOC: ER 06:07 → LD 06:18 → MED/SURG 09:44
PROVIDERS: ADMIT Specialist; ATTEND Specialist

== ENCOUNTER 2022-08-03 23:38 | Inpatient (IN) ==
[2022-08-03] MEDS ORDERED: MILK OF MAGNESIA PO PRN (23:45)
[2022-08-03] MEDS ORDERED: ADACEL or BOOSTRIX TDaP VACCINE IM ONE (23:45)
[2022-08-03] MEDS ORDERED: HYPERRHO S/D (or RHOGAM) IM PRN (23:45)
[2022-08-03] MEDS ORDERED: AMBIEN PO PRN (23:45)
[2022-08-04] MEDS: MOTRIN TAB 800 MG PO PRN ×2 (02:46→21:24)
[2022-08-04 02:57] VITALS: BMI 33.0
[2022-08-04 05:12] LABS: HEMATOCRIT 24.5 % (36.0-47.0); HEMOGLOBIN 8.5 g/dL (12.0-16.0)
[2022-08-04 05:31] LABS: BLOOD UREA NITROGEN 6 mg/dL (7-18); CARBON DIOXIDE 22.5 mmol/L (21-32); CHLORIDE 105 mmol/L (98-107); COR NA(FOR HYPERGLY) 137 mmol/L (136-145); CREATININE 0.57 mg/dL (0.55-1.02); GLUCOSE 116 mg/dL (65-99); POTASSIUM 3.8 mmol/L (3.5-5.1); SODIUM 137 mmol/L (136-145); eGFR NON BLACK RACES > 60 (>60)
[2022-08-04] MEDS ORDERED: ADACEL or BOOSTRIX TDaP VACCINE IM ONE (05:35)
[2022-08-04] MEDS: FERROUS GLUCONATE PO SCH ×2 (06:12→19:19)
[2022-08-04] MEDS: PRENATAL PLUS PO SCH (10:00)
[2022-08-04 19:59] VITALS: O2SAT 99
[2022-08-05] MEDS: FERROUS GLUCONATE PO SCH (06:16)
[2022-08-05] MEDS ORDERED: DEPO-PROVERA CONTRACEPTIVE INJ IM ONE (08:21)
[2022-08-05 08:39] VITALS: BP 101/58; PULSE 66; TEMP 99
[2022-08-05] MEDS: PRENATAL PLUS PO SCH (09:27)
[2022-08-05] MEDS: MOTRIN TAB 800 MG PO PRN (09:30)
[2022-08-05 18:42] VITALS: RESP 18
== END 2022-08-05 12:15 | disposition home or self-care (01) | DRG 776 ==
LOC: MED/SURG 23:40
PROVIDERS: ADMIT Specialist; ATTEND Specialist
DX: O99.825 Streptococcus B carrier state complicating the puerperium; O90.81 Anemia of the puerperium; Z91.14 Patient's other noncompliance with medication regimen; D50.8 Other iron deficiency anemias; Z39.0 Encounter for care and examination of mother immediately after delivery; B95.1 Streptococcus, group B, as the cause of diseases classified elsewhere